=== PATIENT | male | born 1940 | race Caucasian/White ===

== ENCOUNTER → 2017-12-23 | Outpatient (CLI) | payer MEDICARE ==
[~2017-12-23] MED LIST: ASPI81EC PO; FINA5 PO; SIMV10 PO; Simvastatin20 MG PO; TIMO.25OPS BOTHEYES; TIMO.5OPSO; [UNRECOGNIZED DRUG - OTHER]
[2017-12-23 14:17] LABS: Stool Occult Bld Immuno 1 Negative (NEGATIVE)
== END | disposition home or self-care (01) ==
LOC: LAB EV 09:45
PROVIDERS: Physician Assistant
DX: Z12.11 Encounter for screening for malignant neoplasm of colon (principal)
CPT/HCPCS: G0328

== ENCOUNTER → 2018-07-28 | Outpatient (CLI) | payer MEDICARE | END | disposition home or self-care (01) | LOC: PLD 08:04 → LAB SHORT 08:04 | DX: L82.1 Other seborrheic keratosis (principal) | CPT/HCPCS: 88305 ==

== ENCOUNTER 2024-06-13 19:11 | Observation (INO) | payer MEDICARE ==
[~2024-06-13] VITALS: Ht 165.1 cm; Wt 67.0 kg
[~2024-06-13 19:11] MED LIST changes: -ASPI81EC PO; +Aspir 8181 MG PO; -TIMO.5OPSO; +TIMO.5OPSO BOTHEYES
[2024-06-13 19:47] LABS: BASOPHILS ABSOLUTE AUTO 0.05 K/mm3 (0.00-0.23); BASOPHILS PERCENT AUTO 1 % (0-2); EOSINOPHILS ABSOLUTE AUTO 0.14 K/mm3 (0.00-0.68); EOSINOPHILS PERCENT AUTO 3 % (0-6); Hematocrit 45.3 % (37.0-53.0); Hemoglobin 15.1 g/dL (13.5-17.5); IMMATURE GRAN ABSOLUTE AUTO 0.01 K/mm3 (0.00-0.10); IMMATURE GRAN PERCENT AUTO 0 % (0-1); LYMPHOCYTES ABSOLUTE AUTO 1.42 K/mm3 (0.84-5.20); LYMPHOCYTES PERCENT AUTO 29 % (21-46); MONOCYTES ABSOLUTE AUTO 0.73 K/mm3 (0.16-1.47); MONOCYTES PERCENT AUTO 15 % (4-13); Mean Corpuscular HGB 31.4 pg (26.0-34.0); Mean Corpuscular HGB Conc 33.3 g/dL (31.5-36.5); Mean Corpuscular Volume 94 fL (80-100); Mean Platelet Volume 10.7 fL (9.1-12.4); NEUTROPHILS ABSOLUTE AUTO 2.52 K/mm3 (1.96-9.15); NEUTROPHILS PERCENT AUTO 52 % (41-73); Platelet Count 187 K/mm3 (150-400); RDW Coefficient Variation 13.2 % (11.7-14.2); Red Blood Cell Count 4.81 M/mm3 (4.30-5.90); White Blood Cell Count 4.87 K/mm3 (4.00-11.30)
[2024-06-13 19:58] LABS: Albumin, Blood 3.7 g/dL (3.4-5.0); Bilirubin, Total 0.4 mg/dL (0.1-1.0); Bun/Creatinine Ratio 18.7 (12.0-20.0); Calcium, Blood 9.9 mg/dL (8.5-10.1); Creatinine, Blood 0.96 mg/dL (0.60-1.20); Globulin, Blood 3.6 g/dL (2.2-4.0); Potassium, Blood 3.8 mmol/L (3.5-5.5); Total Protein, Blood 7.3 g/dL (6.4-8.2)
[2024-06-13] MEDS ORDERED: Simvastatin40 MG PO (20:30)
[2024-06-13] MEDS ORDERED: Aspirin 81 MG Chew PO ONE (20:30)
[2024-06-13] MEDS ORDERED: TAMSULOSIN HCL0.4 M1 PO (20:30)
[2024-06-13] MEDS ORDERED: PREVAGEN PO (20:33)
[2024-06-13] MEDS ORDERED: PRESERVISION A1 EAC1 PO (20:34)
[2024-06-13] MEDS ORDERED: St. John's Wor300 M1 PO (20:35)
[2024-06-13] MEDS ORDERED: Ondansetron HCl 2 MG / ML 2ML Vial IV PRN (21:00)
[2024-06-13] MEDS ORDERED: FLU VACC TS2024-25(6MOS UP)/PF 45 MCG/0.5 ML SYRINGE IM SCH (21:00)
[2024-06-13] MEDS ORDERED: Nitroglycerin 0.4 MG SUBL SL PRN (21:00)
[2024-06-13 22:10] VITALS: BP 139/76
[2024-06-14] MEDS ORDERED: Lactated Ringer's 1,000 ML IV SCH
[2024-06-14 04:24] VITALS: BP 105/64
[2024-06-14 05:04] LABS: BASOPHILS ABSOLUTE AUTO 0.04 K/mm3 (0.00-0.23); BASOPHILS PERCENT AUTO 1 % (0-2); EOSINOPHILS ABSOLUTE AUTO 0.18 K/mm3 (0.00-0.68); EOSINOPHILS PERCENT AUTO 3 % (0-6); IMMATURE GRAN ABSOLUTE AUTO 0.02 K/mm3 (0.00-0.10); IMMATURE GRAN PERCENT AUTO 0 % (0-1); LYMPHOCYTES ABSOLUTE AUTO 1.39 K/mm3 (0.84-5.20); LYMPHOCYTES PERCENT AUTO 21 % (21-46); MONOCYTES ABSOLUTE AUTO 0.85 K/mm3 (0.16-1.47); MONOCYTES PERCENT AUTO 13 % (4-13); Mean Corpuscular HGB 31.2 pg (26.0-34.0); Mean Corpuscular HGB Conc 33.3 g/dL (31.5-36.5); Mean Corpuscular Volume 94 fL (80-100); Mean Platelet Volume 10.8 fL (9.1-12.4); NEUTROPHILS ABSOLUTE AUTO 4.13 K/mm3 (1.96-9.15); NEUTROPHILS PERCENT AUTO 63 % (41-73); Platelet Count 186 K/mm3 (150-400); RDW Coefficient Variation 13.2 % (11.7-14.2); RDW Standard Deviation 45.2 fL (35.1-46.3); Red Blood Cell Count 4.81 M/mm3 (4.30-5.90); White Blood Cell Count 6.61 K/mm3 (4.00-11.30)
[2024-06-14 05:52] LABS: Magnesium, Blood 2.3 mg/dL (1.6-2.4)
[2024-06-14 05:53] LABS: Alanine Aminotransfer (ALT/SGP 20 U/L (12-78); Albumin, Blood 3.5 g/dL (3.4-5.0); Alk Phos 82 U/L (50-136); Anion Gap 8 mmol/L (3-11); Aspartate Aminotrans (AST/SGOT 21 U/L (12-37); Bilirubin, Total 0.5 mg/dL (0.1-1.0); Blood Urea Nitrogen 14 mg/dL (8-24); Bun/Creatinine Ratio 15.7 (12.0-20.0); CHOL/HDL RATIO 3.8; CO2, Blood 27 mmol/L (21-32); Calcium, Blood 9.9 mg/dL (8.5-10.1); Chloride, Blood 112 mmol/L (98-108); Cholesterol 136 mg/dL (50-200); Creatinine, Blood 0.89 mg/dL (0.60-1.20); Globulin, Blood 3.5 g/dL (2.2-4.0); Glomerular Filtration Rate 86 (60-); Glucose, Blood 102 mg/dL (70-99); HDL Cholesterol 36 mg/dL (>39); LDL/HDL RATIO 2.1; Low Density Lipoprotein Chol 74 mg/dL (0-110); Sodium, Blood 143 mmol/L (136-145); Triglycerides 131 mg/dL (30-160); Very Low Density Lipoprot Chol 26 mg/dL (6-32)
--- NOTE | 2024-06-14 06:01 | NUR ---
SHIFT SUMMARY: Pt is admitted for chest pain and is a full code. Is alert and able to make needs known. ADLs have been independent. Stated that he did have some pain to the left side of his neck but it was manageable and did not want anything when offered for pain management. Jae reported sinus in the 70s.
[2024-06-14 07:22] VITALS: BP 111/64
[2024-06-14] MEDS ORDERED: Enoxaparin 40 MG/0.4 ML SYR SC SCH (09:00)
[2024-06-14] MEDS ORDERED: Aspirin 81 MG Chew PO SCH (09:00)
[2024-06-14] MEDS ORDERED: Regadenoson 0.4 MG/5 ML SYRINGE ONE (13:24)
[2024-06-14] MEDS ORDERED: Caffeine Citrated 60 MG/3 ML Vial ONE (13:24)
[2024-06-14 14:41] VITALS: BP 106/65
--- NOTE | 2024-06-14 16:32 | NUR ---
SHIFT SUMMARY PT IS A/OX4, INDEPENDENT IN THE ROOM. FIRST PART OF THE STRESS TEST COMPLETED THIS SHIFT. ON TELE RUNNING NORMAL SINUS RYTHYM IN THE 70'S. LR RUNNING @ 75 ML/HR. POSSIBLE DISCHARGE EXPECTED AFTER STRESS TEST COMPLETED, HOWEVER D/T A CAMERA MALFUNCTION THE PT IS EXPECTED TO STAY UNTIL TOMORROW MORNING TO COMPLETE THE STRESS TEST. STRESS TEST SCHEDULED FOR 0930 TOMORROW. PT TO BE NPO AT MIDNIGHT. FAMILY AT BEDSIDE THIS AFTERNOON.
[2024-06-14] MEDS ORDERED: Finasteride 5 MG Tab PO SCH (20:00)
[2024-06-14 20:17] VITALS: BP 116/66
[2024-06-14] MEDS ORDERED: Timolol 0.5% Opth Soln 5 ML BOTHEYES SCH (20:26)
[2024-06-14] MEDS ORDERED: Atorvastatin 10 MG Tab PO SCH (21:00)
[2024-06-15 03:37] VITALS: BP 112/69
--- NOTE | 2024-06-15 06:41 | NUR ---
SHIFT SUMMARY: A&Ox4, PLEASANT AND COOPERATIVE WITH CARE. VSS ON RA. PER TELEMETRY PT IS SR 60-70 BPM. NO C/O CHEST PAIN, PRESSURE OR SOB. DENIES PAIN. TOLERATING A HEART HEALTHY DIET. ONLY SIPS OF WATER AFTER MN FOR SECOND PART OF STRESS TEST THIS AM. PT IS UP AD PATY INDEPENDENTLY IN ROOM/BR. VOIDING IN TOILET, NO BM THIS SHIFT. BED IN LOWEST POSITION, CALL LIGHT WITHIN REACH.
[2024-06-15 07:35] VITALS: BP 136/61
[2024-06-15] MEDS ORDERED: Timolol 0.5% Opth Soln 5 ML BOTHEYES SCH (09:00)
[2024-06-15] MEDS ORDERED: Beta-Carotene (A) W-C & E/Min 1 Tab PO SCH (09:00)
[2024-06-15] MEDS ORDERED: Tamsulosin HCl 0.4 MG Cap PO SCH (09:00)
--- NOTE | 2024-06-15 13:01 | NUR ---
PT DISCHARGED TO HOME. DISCHARGE INSTRUCTIONS PROVIDED AND EDUCATED ON AT TIME OF DISCHARGE. PRESENT. ALL VALUABLES RETURNED AND SENT HOME WITH THE PATIENT.
== END 2024-06-15 12:59 | disposition home or self-care (01) ==
LOC: ER 19:11 → MEDS 19:12
PROVIDERS: Emergency Medicine; ADMIT Student in an Organized Health Care Education/Training Program
DX: R07.89 Other chest pain (principal); E78.5 Hyperlipidemia, unspecified; G62.9 Polyneuropathy, unspecified; Z87.891 Personal history of nicotine dependence; Z79.82 Long term (current) use of aspirin; Z79.899 Other long term (current) drug therapy
CPT/HCPCS: 36415; 71046; 78451; 80053; 80061; 82947; 83036; 83690; 83735; 84443; 84484; 85025; 93005; 93010; 93017; 94762; 99285-25; A9270; A9500; G0378; J0706; J2785; J7120